=== PATIENT | female | born 1985 | race Two or more races ===

== ENCOUNTER 2016-08-10 13:55 | Emergency (ER) | payer MEDICAID, OTHER ==
[~2016-08-10] VITALS: Ht 172.7 cm; Wt 104.3 kg
[2016-08-10 14:00] VITALS: BP 129/81
[2016-08-10] MEDS ORDERED: KETOROLAC TROMETH 60MG/2ML VIAL IM ONE (17:45)
== END 2016-08-10 18:12 | disposition home or self-care (01) ==
LOC: ER 13:55
DX: G89.29 Other chronic pain (principal); M54.5 Low back pain
CPT/HCPCS: 96372; 99283; J1885

== ENCOUNTER 2018-07-09 20:08 | Emergency (ER) | payer MEDICAID ==
[~2018-07-09] VITALS: Ht 172.7 cm; Wt 127.0 kg
[2018-07-09 20:15] VITALS: BP 137/94
== END 2018-07-10 00:15 | disposition left against medical advice (07) ==
LOC: ER 20:08
DX: S61.217A Laceration without foreign body of left little finger without damage to nail, initial encounter (principal); Z53.21 Procedure and treatment not carried out due to patient leaving prior to being seen by health care provider; W54.0XXA Bitten by dog, initial encounter; Y93.89 Activity, other specified; Y99.8 Other external cause status; Y92.89 Other specified places as the place of occurrence of the external cause
CPT/HCPCS: 73140

== ENCOUNTER 2018-09-13 12:46 | Emergency (ER) | payer MEDICAID ==
[~2018-09-13] VITALS: Ht 170.2 cm; Wt 108.9 kg
[2018-09-13 12:50] VITALS: BP 156/95
[2018-09-13] MEDS ORDERED: KETOROLAC TROMETH 60MG/2ML VIAL IM ONE (14:45)
== END 2018-09-13 15:19 | disposition home or self-care (01) ==
LOC: ER 12:46
DX: M54.42 Lumbago with sciatica, left side (principal)
CPT/HCPCS: 93971; 96372; 99284; J1885